=== PATIENT | female | born 1950 | race Caucasian/White ===

== ENCOUNTER 2021-10-31 12:15 | Emergency (ER) | payer MEDICARE, OTHER ==
[~2021-10-31] VITALS: Ht 162.6 cm; Wt 104.6 kg
[2021-10-31 13:14] VITALS: BP 154/78
--- NOTE | 2021-10-31 13:23 | PHYS DOC ---
Past History Past Surgical History: Other Additional Past Surgical Histo: D/C, OVARIAN CYST Alcohol Use: None General Adult EDM: Chief Complaint: FACE PROBLEM HPI: HPI: Patient is a 71-year-old female coming in for evaluation of right-sided lip droop. Patient was on her way home from a 4-hour dental procedure where she was injected with lidocaine with epi 2 times for right dental work. Patient denies any other symptoms other than some swelling of her right cheek. Patient is a history of dyslipidemia and hypertension. Has a family history of stroke. Denies any numbness or vision changes. Review of Systems: Review of Systems: All other systems within normal limits except for as noted in the HPI Allergies: Allergies: Allergies Uncoded Allergies Type Severity Reaction Last Updated Verified AZITHROMYCIN Allergy Unknown 10/31/21 Physical Exam: PE: Constitutional: Well developed, well nourished, no acute distress, non-toxic appearance. [] HENT: Normocephalic, atraumatic, bilateral external ears normal, nose normal. [] Eyes: PERRLA, conjunctiva normal, no discharge. [] Neck: No rigidity, supple, no stridor. [] Cardiovascular: Regular rate and rhythm, brisk cap refill [] Lungs & Thorax: Non labored symmetric respirations, no tachypnea or respiratory distress [] Abdomen: Soft, nondistended. Skin: Warm, dry, no erythema, no rash. [] Back: Unremarkable Extremities: No deformities, range of motion grossly intact, no lower extremity edema [] Neurologic: Alert and oriented X 3, slight right facial droop, no tongue weakness, remaining cranial nerves intact, symmetric 5 out of 5 upper and lower extremity strength Psychologic: Affect normal, judgement normal, mood normal. [] Current Patient Data: Labs: Laboratory Tests Test 10/31/21 13:12 Glucose (Fingerstick) 116 mg/dL (70-99) H Vital Signs: Vital Signs Date Time Temp Pulse Resp B/P (MAP) Pulse Ox O2 Delivery O2 Flow Rate FiO2 10/31/21 13:14 154/78 (103) 10/31/21 12:26 98.7 75 16 99 Room Air EKG: EKG: [] Radiology/Procedures: Radiology/Procedures: [] Heart Score: C/O Chest Pain: No Risk Factors: Risk Factors: DM, Current or recent (<one month) smoker, HTN, HLP, family history of CAD, obesity. Risk Scores: Score 0 - 3: 2.5% MACE over next 6 weeks - Discharge Home Score 4 - 6: 20.3% MACE over next 6 weeks - Admit for Clinical Observation Score 7 - 10: 72.7% MACE over next 6 weeks - Early Invasive Strategies Course & Med Decision Making: Course & Med Decision Making Pertinent Labs and Imaging studies reviewed. (See chart for details) Had patient call her thinners to get which medication was used, he says he is not able to state how long she should expect symptoms. Patient states she did not realize that the numbing injections could cause her mouth the droop. Discussed with patient that we can do a stroke work-up since we cannot say that this is definitely all due to the lidocaine. Patient states that she wants to self monitor at home and will return if symptoms worsen. States she believes now that is probably due to the lidocaine and wants to be discharged home with return precautions. [] [place] Disclaimer: Dragbogdan Disclaimer: This electronic medical record was generated, in whole or in part, using a voice recognition dictation system. Departure Departure: Impression: Primary Impression: Swelling of right side of face Disposition: HOME / SELF CARE / HOMELESS Condition: STABLE Referrals: HARVINDER TIMMONS MD (PCP) Patient Instructions: Dental Pain KELLEY MORGAN MD Oct 31, 2021 13:23
== END 2021-10-31 13:29 | disposition home or self-care (01) ==
LOC: ER 12:15
DX: R22.0 Localized swelling, mass and lump, head (principal); R29.810 Facial weakness; Z88.1 Allergy status to other antibiotic agents
CPT/HCPCS: 82947; 99283